=== PATIENT | male | born 1995 | race Hispanic/Latino ===

== ENCOUNTER 2018-09-04 19:17 | Emergency (ER) | payer OTHER ==
[2018-09-04 19:17] VITALS: BMI 21.7
[2018-09-04 19:25] VITALS: TEMP 98.7
[2018-09-04] MEDS ORDERED: Sodium Chloride 0.9% 1,000 ML IV STA (19:33)
[2018-09-04 19:50] VITALS: PULSE 79; RESP 18; O2SAT 99
[2018-09-04 19:58] LABS: BASO % 0.4 % (0.0-2.0); EOS # 0.1 K/uL (0.0-0.7); EOS % 1.6 % (0.0-4.0); HEMOGLOBIN 15.1 g/dL (12.0-18.0); LYMPH # 1.3 K/uL (1.0-4.3); LYMPH % 22.1 % (20.0-40.0); MEAN CELL VOLUME 85.9 fl (80.0-94.0); MEAN CORPUSCULAR HEMOGLOBIN 28.2 pg (27.0-31.0); MEAN CORPUSCULAR HGB CONC 32.9 g/dL (33.0-37.0); MONO # 0.5 K/uL (0.0-0.8); MONO % 7.9 % (0.0-10.0); NRBC % 0.1 % (0.0-0.0); RBC 5.34 Mil/uL (4.40-5.90); RED CELL DISTRIBUTION WIDTH 13.2 % (11.5-14.5)
[2018-09-04 20:29] LABS: BLOOD UREA NITROGEN 18 mg/dl (9-20); CALCIUM 9.2 mg/dL (8.4-10.2); GFR NON-AFRICAN AMERICAN > 60
[2018-09-04 20:35] LABS: ALB/GLOB RATIO 1.5 (1.0-2.1); ALBUMIN 4.6 g/dL (3.5-5.0); ALT/SGPT 14 U/L (21-72); AST/SGOT 54 U/L (17-59)
--- NOTE | 2018-09-04 20:37 | ED PDOC ---
Syncope/Near Syncope/Dizziness Time Seen by Provider: 09/04/18 19:26 Chief Complaint (Nursing): Weakness/Neurological Deficit Chief Complaint (Provider): Syncope History Per: Patient, Other (friend) History/Exam Limitations: intoxication (cannabis) Onset/Duration Of Symptoms: Hrs Activity At Onset Of Symptoms: Sitting Additional Complaint(s): 23 year old male with no significant medical history accompanied by friend presents to ED with syncopal episode. According to his friend, they were riding in a bus when he noticed that the patient appeared to be sleeping very deeply and had difficulty waking him up. Patient's friend also noticed that the patient's complexion was pale and the patient's eyes seemed to be rolled back but there was no convulsive activity. This episode lasted for about a minute and then the patient woke up asking his friend what had happened. Patient offers that he feels very tired but denies any headache, chest pain, SOB, difficulty with speech or gait. His friend also admits they both ingested an edible containing cannabis an hour prior to the episode. Furthermore, the patient's friend states they both slept very late last night until about 3 AM and continued to feel tired when they woke up. PMD: [facility] Past Medical History Reviewed: Historical Data, Nursing Documentation, Vital Signs Vital Signs: Last Vital Signs Temp 98.7 F 09/04/18 19:23 Pulse 79 09/04/18 19:49 Resp 18 09/04/18 19:49 BP 93/63 L 09/04/18 19:49 Pulse Ox 99 09/04/18 19:49 Primary Care Provider: FAMILY PROVIDER,NO - Medical History PMH: No Chronic Diseases Denies: Asthma, Diabetes, Chronic Kidney Disease - Surgical History Surgical History: No Surg Hx - Family History Family History: States: Unknown Family Hx, Diabetes - Social History Current smoker - smoking cessation education provided: No Alcohol: None Drugs: Cannabis - Home Medications Home Medications: Ambulatory Orders Medication Instructions Recorded Tobramycin [Tobrex] 5 ml TOP QID #1 bottle 03/05/16 Albuterol HFA [Ventolin HFA 90 1 puff IH Q4 #1 inhaler 06/24/17 mcg/actuation (8 g)] Diclofenac Sodium [Voltaren] 100 mg PO DAILY PRN #10 tab 06/24/17 Promethazine DM [Phenergan DM 10 ml PO Q6 PRN #200 ml 06/24/17 Syrup] - Allergies Allergies/Adverse Reactions: Allergies Allergy/AdvReac Type Severity Reaction Status Date / Time No Known Allergies Allergy Verified 09/04/18 19:27 Review of Systems ROS Statement: Except As Marked, All Systems Reviewed And Found Negative Constitutional: Positive for: Other (feeling tired) Cardiovascular: Negative for: Chest Pain Respiratory: Negative for: Shortness of Breath Neurological: Positive for: Other (no difficulty with speech or gait). Negative for: Headache Physical Exam - Reviewed Nursing Documentation Reviewed: Yes Vital Signs Reviewed: Yes - Physical Exam Appears: Positive for: No Acute Distress (tired) Head Exam: Positive for: ATRAUMATIC, NORMOCEPHALIC Eye Exam: Positive for: EOMI, PERRL, Conjunctival injection ENT: Positive for: Pharynx Is (clear), Other (tacky mucous membranes) Cardiovascular/Chest: Positive for: Regular Rate, Rhythm. Negative for: Murmur Neurological/Psych: Positive for: Oriented (x3), Lethargic, Other (easily arousable and communicative). Negative for: Motor/Sensory Deficits - Laboratory Results Result Diagrams: 09/04/18 19:45 09/04/18 19:47 - ECG O2 Sat by Pulse Oximetry: 99 (RA) Pulse Ox Interpretation: Normal Medical Decision Making Medical Decision Making: Time: 2039 Initial Impression: cannabis intoxication DDx: dehydration, electrolyte abnormality Initial Plan: --EKG --Labs (Alcohol Serum, CMP, Magnesium, Phosphorous, Troponin) --CXR --Dextrose --IV Fluid --- Scribe Attestation: Documented by Usman Horvath, acting as a scribe for Lelia Salter MD. Provider Scribe Attestation: All medical record entries made by the Scribe were at my direction and personally dictated by me. I have reviewed the chart and agree that the record accurately reflects my personal performance of the history, physical exam, medical decision making, and the department course for this patient. I have also personally directed, reviewed, and agree with the discharge instructions and disposition. Disposition - Clinical Impression Clinical Impression: Syncope, Cannabis abuse Counseled Patient/Family Regarding: Studies Performed, Diagnosis, Need For Followup - Disposition Disposition: Routine/Home Disposition Time: 21:32 Condition: IMPROVED Instructions: Syncope (Fainting), Marijuana Use and Addiction (DC)
[2018-09-04 21:32] VITALS: BP 122/68
--- NOTE | 2018-09-05 09:49 | CARD ---
APPROVED REPORT Date of service: 09/04/2018 EKG Measurement Heart [id number] ME [id number] <Conclusion> Normal sinus rhythm Minimal voltage criteria for LVH, may be normal variant Possible Acute pericarditis or early repolarization Abnormal ECG
--- NOTE | 2018-09-05 13:49 | RAD ---
Date of service: 09/04/2018 HISTORY: Weakness COMPARISON: 04/17/2017. FINDINGS: LUNGS: The lungs are well inflated and clear. PLEURA: No pleural effusions or pneumothorax. CARDIOVASCULAR: The heart is normal in size. No aortic atherosclerotic calcifications present. OSSEOUS STRUCTURES: Within normal limits for the patient's age. VISUALIZED UPPER ABDOMEN: Normal. OTHER FINDINGS: None. IMPRESSION: No active pulmonary disease.
== END 2018-09-04 21:35 | disposition home or self-care (01) ==
LOC: H.ER 19:17
DX: F12.129 Cannabis abuse with intoxication, unspecified (principal); R55 Syncope and collapse
CPT/HCPCS: 71045; 80053; 80320; 82948; 83735; 84100; 84484; 85025; 93005; 96360; 99283; J7030